=== PATIENT | female | born 1960 | race Two or more races ===

== ENCOUNTER 2018-01-25 05:33 | Inpatient (IN) | payer MEDICAID ==
[2018-01-16 11:32] LABS: APPEARANCE,URINE CLEAR; BILIRUBIN, URINE NEGATIVE (NEGATIVE); COLOR,URINE PALE YELLOW; GLUCOSE, URINE (UA) NEGATIVE (NEGATIVE); KETONES,URINE NEGATIVE (NEGATIVE); LEUKOCYTE ESTERASE ,URINE NEGATIVE (NEGATIVE); NITRITE,URINE NEGATIVE (NEGATIVE); PH,URINE 5 (4.5-8.0); PROTEIN,URINE NEGATIVE (NEGATIVE); UROBILINOGEN,URINE NORMAL MG/DL (0.0-1.0)
[2018-01-16 12:06] LABS: BASOPHILS % (AUTO) 0.9 % (0.0-2.0); EOSINOPHILS % (AUTO) 9.7 % (0.0-3.0); HEMATOCRIT 48.3 % (37.0-47.0); HEMOGLOBIN 15.9 G/DL (12.0-16.0); LYMPHOCYTES % (AUTO) 36.3 % (20.0-45.0); MEAN CORPUSCULAR VOLUME 85 FL (80-99); MONOCYTES % (AUTO) 6.3 % (1.0-10.0); NEUTROPHILS % (AUTO) 46.8 % (45.0-75.0); PLATELET COUNT 357 K/UL (150-450); RED BLOOD COUNT 5.66 M/UL (4.20-5.40); RED CELL DISTRIBUTION WIDTH 11.2 % (11.6-14.8); WHITE BLOOD COUNT 6.1 K/UL (4.8-10.8)
[2018-01-16 12:20] LABS: ALANINE AMINOTRANSFERASE 34 U/L (12-78); ALBUMIN 4.1 G/DL (3.4-5.0); ALBUMIN/GLOBULIN RATIO 1.1 (1.0-2.7); ALKALINE PHOSPHATASE 89 U/L (46-116); ANION GAP 6 mmol/L (5-15); ASPARTATE AMINO TRANSFERASE 15 U/L (15-37); BILIRUBIN,TOTAL 0.3 MG/DL (0.2-1.0); BLOOD UREA NITROGEN 14 mg/dL (7-18); CALCIUM 9.6 MG/DL (8.5-10.1); CARBON DIOXIDE 32 MMOL/L (21-32); CHLORIDE 102 MMOL/L (98-107); CREATININE 0.9 MG/DL (0.55-1.30); POTASSIUM 4.7 MMOL/L (3.5-5.1); SODIUM 140 MMOL/L (136-145)
--- NOTE | 2018-01-16 12:49 | Diagnostic Imaging Report ---
Indication: Cough Technique: 2 views of the chest Comparison: None Findings: Lungs and pleural spaces are clear. The heart size is normal. The bones are unremarkable. A tiny metallic circular object projects in the right anterior chest wall soft tissues Impression: Negative
--- NOTE | 2018-01-17 17:55 | Cardiology Report ---
APPROVED REPORT EKG Measurement Heart [id number] NM [id number] Normal sinus rhythm Normal ECG
--- NOTE | 2018-01-24 10:00 | Pre-op HX & Phy Repo 2 SIG ---
DATE OF ADMISSION: 01/25/2018 Scheduled for surgery January 25, 2018. HISTORY OF PRESENT ILLNESS: The patient is a 57-year-old female, in overall stable health with biopsy-proven invasive ductal carcinoma and ductal carcinoma in situ of the right breast and a history of left nipple discharge with blood. She is scheduled to undergo bilateral total mastectomy with right axillary lymph node biopsy. She has a very strong family history of breast cancer. The patient presented earlier this year with symptoms of an evoked left nipple discharge with blood for two years. She also had a palpable mass in the right breast at 6 o'clock. Mammography and ultrasound of the left breast was unremarkable. On the right breast, there was a suspicious mass in the periphery of the breast at 6 o'clock. Needle biopsy revealed invasive ductal carcinoma and ductal carcinoma in situ, moderately differentiated. Marker studies were obtained revealing estrogen receptor and progesterone receptor positive and HER2-negative. In view of her strong family history, long discussion was held with the patient and her daughter and decision was made to perform bilateral total mastectomy and right axillary lymph node biopsy, sentinel node biopsy. PAST MEDICAL HISTORY AND MEDICATIONS: Metformin, statin for elevated cholesterol, and aspirin 81 mg daily. ALLERGIES: None. OPERATIONS: None. PHYSICAL EXAMINATION: VITAL SIGNS: The patient is 5 foot 3 inches, 165 pounds with stable vital signs. HEENT: Within normal limits. LUNGS: Clear. HEART: Regular rhythm. BREASTS: Examination of the breasts revealed the breasts are small in size. There is some bilateral thickening superior to the areola from 10 to o'clock on both sides. There is a 2 cm mass at the periphery of the right breast at 6 o'clock. There was no palpable axillary or supraclavicular lymphadenopathy. ABDOMEN: Soft. PELVIC: Per primary care physician. RECTAL: Per primary care physician. EXTREMITIES: Without edema. NEUROLOGIC: Physiologic. IMPRESSION: 1. Invasive ductal carcinoma and ductal carcinoma in situ of right breast. 2. Left breast bloody nipple discharge. 3. Diabetes, controlled with oral agents. PLAN: The patient will undergo bilateral total mastectomy and right axillary sentinel lymph node biopsy. I have had a full discussion regarding the nature of the surgery, potential for delayed reconstruction, indications, alternatives, options, and risks including bleeding, infection, the nature of the scarring, need for postoperative drains, need for additional procedures, pending final pathology, etc. All questions have been answered. The patient understands and agrees to proceed. Luis M Marcum M.D. DR: CARITO JOB#: [id number] CC:
[~2018-01-25] VITALS: Ht 160 cm; Wt 72.6 kg
[2018-01-25] VITALS (13 sets, daily range): BP systolic 102–136; BP diastolic 55–82
[2018-01-25] MEDS ORDERED: FISH OIL CAP1000 MG ORAL (06:19)
[2018-01-25] MEDS ORDERED: METFORMIN HCL500 M1 ORAL (06:19)
[2018-01-25] MEDS ORDERED: SIMVASTATIN10 MG ORAL (06:19)
[2018-01-25] MEDS ORDERED: ASPIR 8181 MG ORAL (06:19)
[2018-01-25] MEDS ORDERED: ceFAZolin 2gm/50ml Premix 50 ML IVPB ONE (06:30)
[2018-01-25] MEDS ORDERED: ceFAZolin sod 1 GM in NS 55 ML IVPB ONE (07:00)
--- NOTE | 2018-01-25 07:15 | Anethesia Preoperative Eval ---
Anesthesia Pre-op PMH/ROS General Date of Evaluation: Jan 25, 2018 Anesthesiologist: Omid ASA Score: ASA 3 Mallampati Score Class I : Soft palate, uvula, fauces, pillars visible Class II: Soft palate, uvula, fauces visible Class III: Soft palate, base of uvula visible Class IV: Only hard plate visible Mallampati Classification: Class II Surgeon: Jossue Diagnosis: Right breast cancer Surgical Procedure: Bilateral total mastectomy Anesthesia History: none Family History: no anesthesia problems Allergies: Coded Allergies: No Known Allergies (Unverified , 01/24/18) Medications: see eMAR Past Medical History Cardiovascular: Reports: other - HLD, Denies: HTN, CAD, [place], valve dz, arrhythmia Pulmonary: Denies: asthma, COPD, [place], other Gastrointestinal/Genitourinary: Denies: GERD, CRI, ESRD, other Neurologic/Psychiatric: Denies: dementia, CVA, depression/anxiety, TIA, other Endocrine: Reports: DM, Denies: hypothyroidism, steroids, other HEENT: Denies: cataract (L), cataract (R), glaucoma, [place] (L), [place] (R), other Hematology/Immune: Reports: other - breast Cancer, Denies: anemia, DVT, bleeding disorder Musculoskeletal/Integumentary: Denies: OA, RA, DJD, DDD, edema, other PSxH Narrative: KEELEY Anesthesia Pre-op Phys. Exam Physician Exam Last Vital Signs Date Time Temp Pulse Resp B/P (MAP) Pulse Ox O2 Delivery O2 Flow Rate FiO2 01/25/18 06:04 97.7 73 20 136/80 95 Room Air 97.7 Constitutional: NAD Cardiovascular: RRR Respiratory: CTA Airway Exam Mallampati Score: Class II MO: full ROM: full Teeth: intact Anesthesia Pre-op A/P Labs see chart Studies Pre-op Studies: EKG - sr Risk Assessment & Plan Assessment: ASA III Plan: GA Status Change Before Surgery: No Pre-Antibiotics Drug: Ancef 2g Given Within 1 Hr of Incision: Yes Time Given: 07:35 MONA GIBSON M.D. Jan 25, 2018 07:15
--- NOTE | 2018-01-25 07:22 | Pre-Procedure Note/Attestation ---
Pre-Procedure Note/Attestation Complete Prior to Procedure Planned Procedure: bilateral Procedure Narrative: bilateral mastectomy and right axillary lymph node biopsy Indications for Procedure Pre-Operative Diagnosis: carcinoma right breast; bloody left nipple discharge; high risk family history Attestation I attest that I discussed the nature of the procedure; its benefits; risks and complications; and alternatives (and the risks and benefits of such alternatives ), prior to the procedure, with the patient (or the patient's legal medical representative). I attest that, if there was a reasonable possibility of needing a blood transfusion, the patient (or the patient's legal medical representative) was given the [facility] standardized written summary, pursuant to the [place] Blood Safety Act ([place] Health and Safety Code # 1645, as amended). I attest that I re-evaluated the patient just prior to the surgery and that there has been no change in the patient's H&P, except as documented below:none GENEVA HUNTER Jan 25, 2018 07:22
[2018-01-25] MEDS ORDERED: Bupivacaine 0.5% Inj 30 ml vial INJ ONE (07:29)
[2018-01-25] MEDS ORDERED: Lidocaine 1% 10mg/ml/EPI 0.01mg/ml 50ml INJ ONE (07:30)
[2018-01-25] MEDS ORDERED: Lidocaine 1% 10mg/ml/Epi 0.005mg/ml 30ml vial INJ ONE (07:32)
[2018-01-25] MEDS ORDERED: LR 1000ml 1,000 ML IVLG SCH (07:55)
[2018-01-25] MEDS ORDERED: Hydromorphone 0.5mg/0.5ml inj IVP PRN (08:00)
[2018-01-25] MEDS ORDERED: Midazolam 2mg/2ml Inj ONE (08:00)
[2018-01-25] MEDS ORDERED: Lidocaine 1% MPF 10mg/ml 5ml ONE (08:00)
[2018-01-25] MEDS ORDERED: fentaNYL 100 mcg/2 mL IV ONE (08:00)
[2018-01-25] MEDS ORDERED: Propofol 200mg/20ml IV ONE (08:00)
[2018-01-25] MEDS ORDERED: DiphenhydrAMINE 50mg/ml Inj IVP PRN (08:00)
[2018-01-25] MEDS ORDERED: fentaNYL 100 mcg/2 mL IV PRN (08:00)
[2018-01-25] MEDS ORDERED: Midazolam 2mg/2ml Inj IVP PRN (08:00)
[2018-01-25] MEDS ORDERED: Zemuron 50mg/5ml Inj IV ONE (08:00)
[2018-01-25] MEDS ORDERED: Ketorolac 30mg Inj IV PRN (08:00)
[2018-01-25] MEDS ORDERED: LORazepam Inj 2mg/ml 1ml IV PRN (08:00)
--- NOTE | 2018-01-25 08:06 | Immediate Post-Op Evaluation ---
Immediate Post-Op Evalulation Immediate Post-Op Evalulation Procedure: Bilateral total breast masatectomy and right lymph node biopsy Date of Evaluation: Jan 25, 2018 Time of Evaluation: 10:21 IV Fluids: 1.5L Blood Products: 0 Estimated Blood Loss: 25 Urinary Output: 0 Blood Pressure Systolic: 124 Blood Pressure Diastolic: 80 Pulse Rate: 69 Respiratory Rate: 17 O2 Sat by Pulse Oximetry: 98 Temperature (Fahrenheit): 97.2 Pain Score (1-10): 0 Nausea: No Vomiting: No Complications 0 Patient Status: awake, reacts, patent, none Hydration Status: adequate Drug: Ancef 2g Given Within 1 Hr of Incision: Yes Time Given: 07:35 MONA GIBSON M.D. Jan 25, 2018 08:06
--- NOTE | 2018-01-25 08:07 | 48 Hour Post Anesthesia Eval ---
Post Anesthesia Evaluation Procedure: Bilateral total breast masatectomy and right lymph node biopsy Date of Evaluation: Jan 25, 2018 Time of Evaluation: 09:42 Blood Pressure Systolic: 105 0: 52 Pulse Rate: 96 Respiratory Rate: 18 Temperature (Fahrenheit): 97.5 O2 Sat by Pulse Oximetry: 98 Airway: patent Nausea: No Vomiting: No Pain Intensity: 0 Hydration Status: adequate Cardiopulmonary Status: at baseline Mental Status/LOC: patient returned to baseline Post-Anesthesia Complications: 0 Follow-up care needed: ready to discharge MONA GIBSON M.D. Jan 25, 2018 08:07
--- NOTE | 2018-01-25 10:22 | Brief Operative Note ---
Immediate Post Operative Note Operative Note Pre-op Diagnosis: carcinoma right breast; bloody left nipple discharge; high risk family history Procedure: bilateral mastectomy with right axillary lymph node biopsy Post-op Diagnosis: same Post-op Diagnosis: same as pre-op Findings: consistent w/pre-op dx studies Surgeon: theo Anesthesiologist: bryanna Anesthesia: general Specimen: yes - bilateral mastectomy and right axillary sentinel lymph node Complications: none Condition: stable Fluids: see anesthesia record Estimated Blood Loss: minimal Drains: HILARIA - Erich drain 2 on right; 1 on left Implant(s) used?: GENEVA Cheung Jan 25, 2018 10:22
[2018-01-25] MEDS: HYDROmorphone 1mg/ml Carpuject SUBQ PRN ×3 (13:07→21:50)
[2018-01-25] MEDS ORDERED: D5 1/2NS w/KCl 20mEq 1,000 ML IV SCH (13:30)
--- NOTE | 2018-01-25 15:31 | Operative Note - Dictated ---
DATE OF OPERATION: 01/25/2018 SURGEON: Luis M Marcum M.D. [employer]PER[employer]OR [employer] SURGEON: None. ANESTHESIOLOGIST: Dr. Anne. TYPE OF ANESTHESIA: General endotracheal. PREOPERATIVE DIAGNOSES: 1. Invasive ductal carcinoma and ductal carcinoma in situ, right breast. 2. History of left breast bloody nipple discharge with negative imaging studies and exam. 3. Strong family history for breast cancer. POSTOPERATIVE DIAGNOSES: 1. Invasive ductal carcinoma and ductal carcinoma in situ, right breast. 2. History of left breast bloody nipple discharge with negative imaging studies and exam. 3. Strong family history for breast cancer. OPERATION PERFORMED: Bilateral total mastectomy with right axillary sentinel lymph node biopsy. DESCRIPTION OF PROCEDURE: The patient was taken to the operating room and under general endotracheal anesthesia with sequential compression device stockings in place and received intravenous antibiotics, the patient was prepped and draped in usual fashion. Attention was then first directed to the right breast. The patient had small breasts bilaterally. The carcinoma in the right breast was a 2 cm mass at the inframammary fold in the periphery of the right breast at 6 o'clock. An elliptical transverse incision was made encompassing the nipple-areolar complex from the lateral border of the sternum to the anterior axillary line. Flaps were dissected circumferentially. The inferior flap was made thin because of the underlying mass. Flaps were dissected to the sternum, second rib costal margin, and latissimus dorsi. Orienting sutures were placed with the pathologist marking medial and superior. The breast was resected including the pectoralis fascia and given to the pathologist, who inked the specimen and observed that the margin around the tumor was satisfactory. Dissecting right axilla revealed a small lymph node, which was excised with some of the axillary fat pad, achieving hemostasis with medium clips and cautery. Two 19-mm round Erich drains were placed through stab incisions inferior and lateral and one placed onto the flaps and the other into the axilla both were sutured to the skin with 2-0 silk skin sutures. The field was copiously irrigated and hemostasis was secured. The incision was closed with interrupted 2-0 Vicryl deep dermal subcutaneous sutures followed by heike. The Ishmael-Madrigal drains were placed on bulb suction with good apposition of the flaps. Then, gloves were changed and the instrumentation was changed and the left side was addressed. A transverse elliptical incision was made and flaps dissected circumferentially and the breast removed with pectoralis fascia. There was no indication for axillary lymph node biopsy on this side. Hemostasis carefully achieved with cautery. A 19 mm round Erich drain placed through a stab incision inferior and lateral and sutured to the skin with 2-0 silk, it was placed under the flaps. After ascertaining the hemostasis was secured, the incision was closed with interrupted 2-0 Vicryl deep dermal subcutaneous sutures followed by skin heike. The drain was placed on bulb suction with good apposition of the flaps. Dry sterile dressings were applied. Final sponge and needle counts were correct. The patient tolerated the procedure well and left the operating room in stable condition. Luis M Marcum M.D. DR: CARITO JOB#: [id number] CC:
[2018-01-25] MEDS: ceFAZolin sod 1 GM in D5W 55 ML IV SCH ×2 (16:12→23:42)
[2018-01-26 00:49] VITALS: BP 131/70
[2018-01-26] MEDS: HYDROmorphone 1mg/ml Carpuject SUBQ PRN ×2 (02:05→07:37)
[2018-01-26 04:00] VITALS: BP 94/57
[2018-01-26 08:00] VITALS: BP 138/77
[2018-01-26] MEDS ORDERED: Ketorolac 30mg Inj IV STA (08:08)
--- NOTE | 2018-01-26 08:21 | General Progress Note ---
Progress Note Progress Note AVSS c/o pain receiving Dilaudid SQ. Has been out of bed to void only. Not on oxygen overnight despite orders. Barely ate breakfast bilateral mastectomy incisions clean with [id number] patch of ischemic skin mid- incision lower flap right side (very thin flap due to cancer at infra-mammary crease and small breast. I&0 okay with 70cc HILARIA drainage (not recorded by drain) Imp: Pain post-op poorly controlled Plan; Toradol IV Ambulate with assistance TID continue oxygen therapy another 24 hours not in condition to be discharged record HILARIA output q4h each drain separately GENEVA HUNTER Jan 26, 2018 08:21
[2018-01-26] MEDS: metFORMIN 500mg tab ORAL SCH ×2 (08:54→17:51)
[2018-01-26] MEDS: Ketorolac 30mg Inj IV PRN ×2 (15:04→21:46)
[2018-01-26 15:52] VITALS: BP 127/62
[2018-01-26] MEDS: Norco 5mg/325mg tab ORAL PRN (17:52)
[2018-01-26 20:00] VITALS: BP 128/64
[2018-01-27] VITALS: BP 143/59
[2018-01-27 04:00] VITALS: BP 138/75
[2018-01-27] MEDS: Ketorolac 30mg Inj IV PRN ×4 (04:05→22:49)
[2018-01-27 08:00] VITALS: BP 133/66
[2018-01-27] MEDS: metFORMIN 500mg tab ORAL SCH ×2 (08:56→18:43)
[2018-01-27] MEDS: Norco 5mg/325mg tab ORAL PRN (09:06)
--- NOTE | 2018-01-27 10:31 | General Progress Note ---
Progress Note Progress Note AVSS c/o pain unrelieved by [place]. Ambulates well but not eating well (dietary issues). She is tearful also Incisions clean and dry, small 2x3cm patch ischemic skin right mid-lower flap at incision. HILARIA drains: left: 12cc/12 hours overnight right: 19cc + 22cc (overnight - 2 drains) Imp: Slowly improving pain management issue Plan: d/c [place] - start Percocet 5/325 d/c IV fluids adjust diet teach patient/family re care of HILARIA drains toradol IV prn breakthrough pain anticipate discharge in AM family given Rx for Percocet #24 for home use post-discharge GENEVA HUNTER Jan 27, 2018 10:32
[2018-01-27] MEDS: Docusate 100mg cap ORAL SCH ×3 (10:41→18:43)
[2018-01-27 12:00] VITALS: BP 154/61
[2018-01-27 16:00] VITALS: BP 154/78
[2018-01-27 20:00] VITALS: BP 108/47
[2018-01-27] MEDS ORDERED: Miralax 17gm pkt ORAL SCH (21:00)
[2018-01-27] MEDS: oxyCODONE HCL/Acetaminophen 5/325mg ORAL PRN (21:22)
[2018-01-28] VITALS: BP 126/71
[2018-01-28] MEDS: oxyCODONE HCL/Acetaminophen 5/325mg ORAL PRN (02:45)
[2018-01-28 04:00] VITALS: BP 129/64
[2018-01-28] MEDS: Ketorolac 30mg Inj IV PRN ×2 (06:06→12:33)
[2018-01-28 08:00] VITALS: BP 160/98
--- NOTE | 2018-01-28 09:03 | General Progress Note ---
Progress Note Progress Note Much improved with manageable pain without parenteral meds Incisions clean and dry bilaterally; ischemic area right inferior flap is smaller HILARIA (12hrs overnight) 11; 15 and 15 (#s 1-3) Imp: Doing well Plan: discharge with supplies - patient and daughter have been taught re HILARIA drain care and recording outputs instructions/limitations discussed f/u Clinic 02/02 - call GENEVA Do Jan 28, 2018 09:03
[2018-01-28] MEDS: metFORMIN 500mg tab ORAL SCH (09:20)
[2018-01-28] MEDS: Docusate 100mg cap ORAL SCH ×2 (09:20→12:29)
[2018-01-28 12:00] VITALS: BP 150/70
[2018-01-28 15:00] VITALS: BP 162/86
[2018-01-28] MEDS ORDERED: 1/2 NS 1000ml IV ONE ×2 (15:59)
--- NOTE | 2018-02-01 08:28 | Discharge Summary ---
Discharge Summary Hospital Course Date of Admission Jan 25, 2018 at 12:32 Date of Discharge Jan 28, 2018 at 16:00 Admitting Diagnosis R breast Ca Reason for Hospitalization: elective surgery HPI Marsha Shay is a 58 year old female who was admitted on Jan 25, 2018 at 12: 32 for Carcinoma Right Breast and elective surgery Procedures s/p 01/[address] Marcum Bilateral total mastectomy with right axillary sentinel lymph node biopsy. Hospital Course s/p surgery pain management pain, initially not controlled with [place], changed to Percocet, pain controlled intiailly iVF incision C/D 3 HILARIA drains ( 2 on the rigth and 1 on the left), output closely monitored patient and her daughter were taught drain care ambulated with assistance tolerated diet, initially poor appetite voided without difficulties pathology revealed invasive ductal carcinoma, high grade R axilla node excision- benign, no malignant cells BS stable patient was stable for dc scripts for analgesics and supplies provided dc instructions/limitations discussed reviewed care of HILARIA with patient and daughter patient to fup as outpt in clinic 02/02 FINAL DIAGNOSES 1. Invasive ductal carcinoma and ductal carcinoma in situ of right breast. 2. Left breast bloody nipple discharge ( negative imaging studies and exam) 3. Strong family history for breast cancer. 4. s/p bilateral total mastectomy with right axillary sentinel lymph node biopsy. 5. Diabetes ( controlled with oral agents) Discharge Medications Continued Medications: Aspirin* (Aspir 81*) 81 Mg Tablet.dr 81 MG ORAL DAILY, TAB (This prescription has been renewed) Fish Oil (Fish Oil 1,000 mg Capsule) 1 Each Capsule 1000 MG ORAL DAILY, CAP (This prescription has been renewed) Metformin Hcl* (Metformin Hcl*) 500 Mg Tablet 500 MG ORAL TWICE A DAY, TAB (This prescription has been renewed) Simvastatin (Zocor) 10 Mg Tablet 10 MG ORAL BEDTIME, TAB (This prescription has been renewed) Discharge Discharge Disposition Patient was discharged to Home () Discharge Instructions Discharge Instructions Special Instructions I have been assigned to complete a D/C Summary on this account. I was not involved in the patient management Anat Callejas NP ([place]) Feb 01, 2018 08:28
== END 2018-01-28 16:00 | disposition home or self-care (01) | DRG 362 ==
LOC: SUR 05:33 → 3E 12:32
PROC: 07B50ZX Excision of Right Axillary Lymphatic, Open Approach, Diagnostic (ICD-10-PCS; 2018-01-25)
PROC: 0HTV0ZZ Resection of Bilateral Breast, Open Approach (ICD-10-PCS; principal; 2018-01-25 07:30)
DX: D05.11 Intraductal carcinoma in situ of right breast (principal); E11.9 Type 2 diabetes mellitus without complications; N64.52 Nipple discharge; Z80.3 Family history of malignant neoplasm of breast; Z79.84 Long term (current) use of oral hypoglycemic drugs
CPT/HCPCS: 36415; 71046; 80053; 81003; 82962; 85025; 85610; 85730; 86850; 86900; 86901; 87081; 93005; 94003; 94150; J2250; J2405

== ENCOUNTER 2018-06-11 01:44 | Emergency (ER) | payer MEDICAID ==
[~2018-06-11] VITALS: Ht 160 cm; Wt 69.4 kg
[~2018-06-11 01:44] MED LIST: ASPIR 8181 MG ORAL; FISH OIL CAP1000 MG ORAL; METFORMIN HCL500 M1 ORAL; SIMVASTATIN10 MG ORAL
[2018-06-11 02:09] VITALS: BP 127/65
[2018-06-11] MEDS ORDERED: Solu-MEDROL 125mg Inj IM ONE (02:45)
[2018-06-11] MEDS ORDERED: PREDNISONE20 MG ORAL (03:56)
--- NOTE | 2018-06-11 03:59 | Emergency Room Report ---
History of Present Illness General Chief Complaint: Chest Pain Present Illness HPI This patient has two problems. One is constant, low-level anterior thoracic chest wall pain for weeks-month? That is not new and not reason she is here. She is here b/c of diffuse rash that is itchy. Face, chest, arms, legs. No similar history. No new exposures. No trauma, no fever, no shortness of breath, no nausea, no vomiting, no diarrhea, no abdominal pain, no syncope, LOC, dizziness, lightheadedness, headache. January 2018 breast cancer and surgery April 2018 chemotherapy started Allergies: Coded Allergies: No Known Allergies (Unverified , 01/24/18) Nursing Documentation-PMH Hx Cardiac Problems: Yes Hx Hypertension: Yes Hx Diabetes: Yes - PRE-DIABETIC Hx Cancer: Yes - BILATERAL MASTECTOMY,JANUARY 2018 Hx Gastrointestinal Problems: No Hx Neurological Problems: No Review of Systems Constitutional: Reports: no symptoms Eye: Reports: no symptoms ENT: Reports: no symptoms Respiratory: Reports: no symptoms Cardiovascular: Reports: no symptoms Gastrointestinal: Reports: no symptoms Genitourinary: Reports: no symptoms Musculoskeletal: Reports: no symptoms Skin: Reports: no symptoms Psychiatric: Reports: no symptoms Neurological: Reports: no symptoms Endocrine: Reports: no symptoms Hematologic/Lymphatic: Reports: no symptoms Allergic: Reports: no symptoms Physical Exam Vital Signs Date Time Temp Pulse Resp B/P (MAP) Pulse Ox O2 Delivery O2 Flow Rate FiO2 06/11/18 01:46 98.3 86 18 97 Room Air 98.2 06/11/18 02:09 127/65 Sp02 EP Interpretation: reviewed, normal General Appearance: normal inspection, well appearing, no apparent distress, alert, GCS 15, non-toxic Head: normocephalic, atraumatic Eyes: bilateral eye normal inspection, bilateral eye PERRL, bilateral eye EOMI ENT: normal ENT inspection, hearing grossly normal, normal pharynx, no angioedema, normal voice, moist mucus membranes Neck: normal inspection, full range of motion, supple, no meningismus, no bony tend Respiratory: normal inspection, lungs clear, normal breath sounds, no rhonchi, no respiratory distress, no retraction, no accessory muscle use, no wheezing, other - s/p bilat mastectomy Cardiovascular #1: normal inspection, regular rate, rhythm, no edema Gastrointestinal: normal inspection, normal bowel sounds, non tender, soft, no mass, non-distended Musculoskeletal: gait/station normal, normal range of motion Neurologic: normal inspection, alert, oriented x3, responsive, motor strength/ tone normal Psychiatric: normal inspection, judgement/insight normal, memory normal Suicide Risk Assessment: Suicidal Ideation: No Had intent to initiate attempt: No Pt's plan for suicide attempt: No Has means to complete attempt: No Skin: normal color, warm/dry, other - urticaria face, chest, upper extrem Medical Decision Making Diagnostic Impression: Primary Impression: Allergic reaction ER Course almost complete resolution s/p Solu-medrol unknown etiology Last Vital Signs Date Time Temp Pulse Resp B/P (MAP) Pulse Ox O2 Delivery O2 Flow Rate FiO2 06/11/18 02:50 98.3 06/11/18 02:09 81 16 127/65 100 Room Air Disposition: HOME, SELF-CARE Condition: Improved Scripts Prednisone* (PREDNISONE*) 20 Mg Tablet 40 MG ORAL DAILY, #5 TAB Prov: Arnulfo Salazar M.D. 06/11/18 Referrals: NON PHYSICIAN (PCP) Patient Instructions: Allergies, [id number] Arnulfo Salazar M.D. Jun 11, 2018 03:59
[2018-06-11 04:19] VITALS: BP 127/65
--- NOTE | 2018-06-11 14:18 | Cardiology Report ---
APPROVED REPORT EKG Measurement Heart [id number] PA 140P26 [id number] Normal sinus rhythm Normal ECG
[2018-06-11] MEDS ORDERED: DIPHENHYDRAMINE25 M1 ORAL (20:49)
[2018-06-11] MEDS ORDERED: RANITIDINE HCL150 MG ORAL (20:49)
== END 2018-06-11 04:20 | disposition home or self-care (01) ==
LOC: EMR 02:16
DX: R07.89 Other chest pain (principal); T78.40XA Allergy, unspecified, initial encounter; X58.XXXA Exposure to other specified factors, initial encounter; L50.9 Urticaria, unspecified; I10 Essential (primary) hypertension; Z90.13 Acquired absence of bilateral breasts and nipples
CPT/HCPCS: 93005; 96372; 99283; J2930

== ENCOUNTER 2018-06-11 19:44 | Emergency (ER) | payer MEDICAID ==
[~2018-06-11] VITALS: Ht 160 cm; Wt 69.4 kg
[~2018-06-11 19:44] MED LIST changes: +PREDNISONE20 MG ORAL
[2018-06-11 20:09] VITALS: BP 143/76
[2018-06-11] MEDS ORDERED: Solu-MEDROL 125mg Inj IM ONE (20:30)
[2018-06-11] MEDS ORDERED: DiphenhydrAMINE 50mg/ml Inj IM ONE (20:30)
[2018-06-11] MEDS ORDERED: RANITIDINE HCL150 MG ORAL (20:49)
[2018-06-11] MEDS ORDERED: DIPHENHYDRAMINE25 M1 ORAL (20:49)
[2018-06-11 20:59] VITALS: BP 143/76
--- NOTE | 2018-06-11 21:10 | Emergency Room Report ---
History of Present Illness General Chief Complaint: Skin Rash/Abscess Source: Patient Present Illness HPI 58-year-old female presents ED complaining of allergic reaction. Daughter at bedside states the symptoms started on Tuesday night shortly after eating some type food. States she had a rash from head to toe which was very itchy. Was seen in ER last night. Was given medications which resolved the symptoms and was subsequently discharged. Daughter admits that they did not fill the prescriptions and states that the symptoms returned. Also notes some lip swelling. Denies any tongue swelling or throat tightness. Denies any chest pain or shortness of breath. Denies any known food or drug allergies. History of bilateral mastectomy in January 2018 and currently undergoing chemotherapy. States the only new medication is dexamethasone. States she also has exposure to cats and takes Claritin for that. No other aggravating relieving factors. Denies any other associated symptoms Allergies: Coded Allergies: No Known Allergies (Unverified , 01/24/18) Patient History Past Medical History: DM, HTN Past Surgical History: other - bilateral mastectomy Pertinent Family History: none Social History: Denies: smoking, alcohol use, drug use Now: No Immunizations: UTD Reviewed Nursing Documentation: PMH: Agreed; PSxH: Agreed Nursing Documentation-PMH Hx Cardiac Problems: Yes Hx Hypertension: Yes Hx Diabetes: Yes - PRE-DIABETIC Hx Cancer: Yes - BILATERAL MASTECTOMY,JANUARY 2018 Hx Gastrointestinal Problems: No Hx Neurological Problems: No Review of Systems All Other Systems: negative except mentioned in HPI Physical Exam Vital Signs Date Time Temp Pulse Resp B/P (MAP) Pulse Ox O2 Delivery O2 Flow Rate FiO2 06/11/18 19:50 97.7 96 16 185/111 94 Room Air 97.7 Sp02 EP Interpretation: reviewed, normal General Appearance: no apparent distress, alert, GCS 15, non-toxic Head: normocephalic, atraumatic Eyes: bilateral eye normal inspection, bilateral eye PERRL ENT: hearing grossly normal, normal pharynx, no angioedema, normal voice, other - minimal lip swelling Neck: full range of motion, supple/symm/no masses, other - no stridor Respiratory: chest non-tender, lungs clear, normal breath sounds, speaking full sentences Cardiovascular #1: regular rate, rhythm, no edema Cardiovascular #2: 2+ carotid (R), 2+ carotid (L), 2+ radial (R), 2+ radial (L) , 2+ dorsalis pedis (R), 2+ dorsalis pedis (L) Gastrointestinal: normal bowel sounds, non tender, soft, non-distended, no guarding, no rebound Rectal: deferred Genitourinary: normal inspection, no CVA tenderness Musculoskeletal: back normal, gait/station normal, normal range of motion, non- tender Neurologic: alert, oriented x3, responsive, motor strength/tone normal, sensory intact, speech normal Psychiatric: judgement/insight normal, memory normal, mood/affect normal, no suicidal/homicidal ideation Reflexes: 3+ bicep (R), 3+ bicep (L), 3+ tricep (R), 3+ tricep (L), 3+ knee (R) , 3+ knee (L) Skin: normal color, warm/dry, well hydrated, other - urticarial rash, diffuse Lymphatic: no adenopathy Medical Decision Making Diagnostic Impression: Primary Impression: Allergic reaction Qualified Codes: T78.40XA - Allergy, unspecified, initial encounter ER Course Hospital Course 58-year-old female presents with rash, lip swelling. 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 After initial history and physical, I ordered her viewed EMR. Patient was seen here yesterday for similar symptoms. Was given Solu-Medrol IM and subsequently discharged after resolution Patient and daughter admit that they did not fill the prescriptions, did not know that they were supposed to continue the medications. No known food or drug allergies. Possible sources could be the type food ingested prior to onset of symptoms, they continued exposure to cats, the dexamethasone which is new Patient also states that she takes lisinopril. This is a consideration however unlikely given that there is also a rash. Nevertheless I did tell the patient to discontinue the lisinopril until she sees her PMD here patient given Solu-Medrol, Benadryl, pepcid On reassessment there is resolution of symptoms. Patient feels better and wishes to be discharged. I encouraged patient to continue the prescriptions as directed. Close follow-up with PMD i. I feel this is a highly complex case requiring extensive working including EKG/Rhythm strip, Xray/CT/US, Blood/urine lab work, repeat exams while in ED, and administration of strong opiates/narcotics for pain control, admission to hospital or close patient follow up. Diagnosis - allergic reaction Stable and discharged to home with prescriptions for Zantac, Benadryl. Followup with PMD. Return to ED if symptoms recur or worsen Last Vital Signs Date Time Temp Pulse Resp B/P (MAP) Pulse Ox O2 Delivery O2 Flow Rate FiO2 06/11/18 20:59 97.7 96 16 143/76 94 Room Air 97.7 Status: improved Disposition: HOME, SELF-CARE Condition: Stable Scripts Ranitidine Hcl* (ZANTAC*) 150 Mg Tablet 150 MG ORAL TWICE A DAY for 5 Days, #30 TAB Prov: Alvin Meza MD 06/11/18 Diphenhydramine Hcl* (DIPHENHYDRAMINE HCL*) 25 Mg Capsule 25 MG ORAL Q6H PRN for Itching for 5 Days, #30 CAP 0 Refills Prov: Alvin Meza MD 06/11/18 Patient Instructions: Food Allergy, [id number] Alvin Meza MD Jun 11, 2018 21:10
== END 2018-06-11 21:01 | disposition home or self-care (01) ==
LOC: EMR 20:12
DX: T78.40XA Allergy, unspecified, initial encounter (principal); X58.XXXA Exposure to other specified factors, initial encounter; R21 Rash and other nonspecific skin eruption; I10 Essential (primary) hypertension; E11.9 Type 2 diabetes mellitus without complications; Z90.13 Acquired absence of bilateral breasts and nipples
CPT/HCPCS: 96372; 99283; J1200; J2930